=== PATIENT | female | born 1965 | race Caucasian/White ===

== ENCOUNTER 2023-01-17 06:52 | Emergency (ER) | payer BC, SELFPAY ==
[2023-01-17 07:04] VITALS: BP 137/79; PULSE 73; RESP 18; TEMP 36; O2SAT 96; BMI 43.3
[2023-01-17 07:56] LABS: PCR FLU A Negative PCR FLU A (Negative); PCR FLU B Negative PCR FLU B (Negative); PCR RSV Negative PCR RSV (Negative)
[2023-01-17 07:58] LABS: SARS PCR* POSITIVE SARS-CoV-2 (Negative)
--- NOTE | 2023-01-17 12:12 | ED_ITS ---
HPI - SOB/Dyspnea General Date Seen: 01/17/23 Chief Complaint: Cough Stated Complaint: congestion,cough,fever, r ear pain Time Seen by Provider: 01/17/23 07:51 Source: patient Mode of arrival: ambulatory Limitations: no limitations History of Present Illness HPI Narrative: Patient is a very nice lady presents here with a cough and some very mild shortness of breath on exerting herself. She denies no chest pain associated with this, she has had a low-grade fever too, but no chills. She has no past history of any pulmonary or cardiac problems, but she does have a history of diabetes. She thinks her creatinine her kidney function is normal. She did get her 1st 2 vaccinations for COVID would not get the 3rd. Nonsmoker, no other heart history, Little bit of a runny nose little bit of a sore throat with this and she has been sick for the past 2 days. MD elicited complaint: shortness of breath and cough Context: recent illness Severity: mild Exacerbating factors: nothing Relieving factors: nothing Known history of: diabetes Associated symptoms: sputum production Treatment prior to arrival: none Related Data Home oxygen amount: none Home Medications Medication Instructions Recorded Confirmed atenolol 100 mg tablet 100 mg PO DAILY 01/17/23 01/17/23 dulaglutide 3 mg/0.5 mL mg subcut 01/17/23 subcutaneous pen injector (Trulicity) losartan 100 mg tablet 100 mg PO DAILY 01/17/23 01/17/23 pioglitazone 30 mg tablet 30 mg PO DAILY 01/17/23 01/17/23 Previous Rx's Medication Instructions Recorded nirmatrelvir 300 mg (150 mg See Rx Instructions PO .COMPLEX 01/17/23 x2)-ritonavir 100 mg tablet,dose #30 ea pack (Paxlovid) Allergies Allergy/AdvReac Type Severity Reaction Status Date / Time [id number] Reductase Allergy Unknown Verified 01/17/23 07:08 Inhibitor lisinopril Allergy Unknown Uncoded 01/17/23 07:08 Review of Systems Status of ROS: Reports: 10 or more systems reviewed and unremarkable except as noted in History and below PFSH PFSH Social History Smoking Status: Never smoker How often do you have a drink containing alcohol: monthly or less AUDIT-C Alcohol total score: 1 Non-prescribed substance use: denies use Exam Narrative: Exam Narrative: Patient is seen in room 1 she appears to be in no apparent distress speaking to me in full sentences. Pupils equal round reactive to light there is no scleral icterus redness or TMs bilaterally are normal her oropharynx is normal, her chest is good air entry bilaterally with absence of wheezing crackles noted no signs respiratory distress her heart sounds are normal, her abdomen is soft there is no guarding no organomegaly. And no tenderness to palpation her lower extremities reveal no pitting edema swelling, and negative Homans sign she moves all extremities independently well with no rashes. Const: Vital Signs, click to edit/add: Vital Signs - 24 hr 01/17/23 07:04 Temperature 96.8 F L Pulse Rate [Pulse Oximeter] 73 Respiratory Rate 18 Blood Pressure [Ri ght Upper Arm] 137/79 Pulse Oximetry 96 Oxygen Delivery Me thod Room Air Documenting provider has reviewed patient's vital signs: yes Course Course ED Course: I discussed with her COVID is positive, given her history of diabetes she would be a candidate for antivirals, I was able to pull from her [facility], laboratory tests from [place] 2022 that showed she had normal creatinine. I think this is reasonable to put her on Paxlovid, risks benefits and side effects discussed in detail, Vital Signs Vital signs: Initial Vital Signs Respiratory Effort Normal 01/17/23 07:01 Respiratory Depth Normal 01/17/23 07:01 Respiratory Pattern Normal 01/17/23 07:01 Vital Signs Temperature 96.8 F L 01/17/23 07:04 Pulse Rate 73 01/17/23 07:04 Respiratory Rate 18 01/17/23 07:04 Blood Pressure 137/79 01/17/23 07:04 Pulse Oximetry 96 01/17/23 07:04 Oxygen Delivery Method Room Air 01/17/23 07:04 Temperature 96.8 F L 01/17/23 07:04 Pulse Rate 73 01/17/23 07:04 Respiratory Rate 18 01/17/23 07:04 Blood Pressure 137/79 01/17/23 07:04 Pulse Oximetry 96 01/17/23 07:04 Oxygen Delivery Method Room Air 01/17/23 07:04 MDM - SOB/Dyspnea MDM Narrative Medical decision making narrative: Life-threatening differential diagnosis includes occluded COPD exacerbation, pulmonary edema, acute coronary syndromes, pulmonary embolism, pneumonia, and pneumothorax. Other differential diagnosis considerations include asthma, bronchitis as well as other etiologies Medical Records Attestation: I reviewed the patient's medical records. Lab Data Attestation: I reviewed the patient's lab results. Labs: Lab Results 01/17/23 Range/Units 07:13 SARS-CoV-2 (PCR) POSITIVE SARS-CoV-2 A (Negative) Influenza Type A (PCR) Negative PCR FLU A (Negative) Influenza Type B (PCR) Negative PCR FLU B (Negative) RSV (PCR) Negative PCR RSV (Negative) Discharge Plan Discharge Clinical Impression: COVID-19 Patient Disposition: Home, Self-Care Condition: Stable Instructions: COVID-19 (Coronavirus Disease 2019) (ED) Additional Instructions: Will discharge patient home, Paxlovid for 5 days, return if worsening shortness of breath or vomting or chest pain, off work for 5 more days Activity Level: Light activity Prescriptions: New Paxlovid 300 mg (150 mg x 2)-100 mg tablets,dose pack See Rx Instructions .ROUTE .COMPLEX Qty: 30 0RF Rx Instructions: take TWO 150 mg tablets of nirmatrelvir with ONE 100 mg tablet of ritonavir twice daily for 5 days No Action atenolol 100 mg tablet 100 mg PO DAILY pioglitazone 30 mg tablet 30 mg PO DAILY losartan 100 mg tablet 100 mg PO DAILY Trulicity 3 mg/0.5 mL pen injector subcut Follow Up/Referrals: Tia Villagran DO [Primary Care Provider] - Stand Alone Forms: [facility] Info Instructions
== END 2023-01-17 10:02 | disposition home or self-care (01) ==
PROVIDERS: Emergency Provider Family Medicine; PCP Family Medicine
DX: U07.1 COVID-19 (principal)
CPT/HCPCS: 87631; 99283